=== PATIENT | female | born 1995 | race Caucasian/White ===

== ENCOUNTER 2017-11-15 10:06 | Observation (INO) | payer OTHER ==
[~2017-11-15] VITALS: Ht 172.7 cm; Wt 59.0 kg
[2017-11-15] MEDS ORDERED: NS IV 1000 ML 1,000 ML IV ONE (10:23)
--- NOTE | 2017-11-15 10:31 | ED Cardiac General ---
History of Present Illness General Chief Complaint: Cardiac/General Problems Stated Complaint: IRR HEART RATE Source: patient, RN/MD (Dr. Waddell [facility]), other (roommate) Exam Limitations: no limitations History of Present Illness Date Seen by Provider: Nov 15, 2017 Time Seen by Provider: 10:18 Initial Comments Patient presents to ER by EMS from [facility] with a chief complaint that she was not feeling well, palpitations and was found to be in supraventricular tachycardia suspect atrial fibrillation. She has a known history of hyperthyroidism and has scheduled surgical thyroidectomy at [facility] . She says she's had palpitations and felt like her heart was racing off and on for the past 5 years about once or twice a year but she usually will cough and will go away. 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 Dr. Wadedll said she tried carotid massage and other vagal maneuvers without success but then the patient spontaneously converted about the time EMS arrived. EMS reports the patient is in sinus tach. No medicines were given. No IV was started. Patient does not smoke. She is not on any other medications. She does have a Nexplanon in her left arm. Allergies and Home Medications Allergies Coded Allergies: No Known Drug Allergies (Unverified , 11/15/17) Review of Systems Constitutional: No chills, No diaphoresis EENTM: No Blurred Vision, No Double Vision Respiratory: Denies Cough, Denies Shortness of Air Cardiovascular: Denies Chest Pain, Denies Edema, Denies Lightheadedness, Palpitations, Denies Syncope Gastrointestinal: Denies Abdomen Distended, Denies Abdominal Pain, Denies Nausea Genitourinary: Denies Discharge, Denies Drainage Musculoskeletal: No back pain, No joint pain Skin: No pruritus, No rash Past Wkwhwje-Aptczt-Jbmmsk Hx Patient Social History Alcohol Use: Denies Use Recreational Drug Use: No Smoking Status: Never a Smoker Physical Exam Vital Signs Vital Signs - First Documented 11/15/17 10:06 Temp 98.0 Pulse 122 Resp 18 B/P (MAP) 134/89 (104) Pulse Ox 99 Capillary Refill : Less Than 3 Seconds General Appearance: No Apparent Distress, WD/WN HEENT: PERRL/EOMI, TMs Normal, Normal ENT Inspection, Pharynx Normal Neck: Full Range of Motion, Normal Inspection, Non Tender, Supple Respiratory: Chest Non Tender, Lungs Clear, Normal Breath Sounds, No Accessory Muscle Use, No Respiratory Distress Cardiovascular: Regular Rate, Rhythm, No Edema, Normal Peripheral Pulses, Tachycardia (110) Gastrointestinal: Normal Bowel Sounds, Non Tender, Soft Neurologic/Psychiatric: Alert, Oriented x3, No Motor/Sensory Deficits, Normal Mood/Affect Skin: Normal Color, Warm/Dry Progress/Results/Core Measures Results/Orders Lab Results Laboratory Tests Test 11/15/17 10:13 Range/Units White Blood Count 4.8 4.3-11.0 10^3/uL Red Blood Count 4.60 4.35-5.85 10^6/uL Hemoglobin 15.2 11.5-16.0 G/DL Hematocrit 43 35-52 % Mean Corpuscular Volume 93 80-99 FL Mean Corpuscular Hemoglobin 33 25-34 PG Mean Corpuscular Hemoglobin Concent 36 32-36 G/DL Red Cell Distribution Width 12.2 10.0-14.5 % Platelet Count 185 130-400 10^3/uL Mean Platelet Volume 10.7 H 7.4-10.4 FL Neutrophils (%) (Auto) 59 42-75 % Lymphocytes (%) (Auto) 31 12-44 % Monocytes (%) (Auto) 6 0-12 % Eosinophils (%) (Auto) 3 0-10 % Basophils (%) (Auto) 1 0-10 % Neutrophils # (Auto) 2.8 1.8-7.8 X 10^3 Lymphocytes # (Auto) 1.5 1.0-4.0 X 10^3 Monocytes # (Auto) 0.3 0.0-1.0 X 10^3 Eosinophils # (Auto) 0.1 0.0-0.3 10^3/uL Basophils # (Auto) 0.0 0.0-0.1 10^3/uL Sodium Level 143 135-145 MMOL/L Potassium Level 4.2 3.6-5.0 MMOL/L Chloride Level 108 H 98-107 MMOL/L Carbon Dioxide Level 23 21-32 MMOL/L Anion Gap 12 5-14 MMOL/L Blood Urea Nitrogen 9 7-18 MG/DL Creatinine 0.87 0.60-1.30 MG/DL Estimat Glomerular Filtration Rate > 60 BUN/Creatinine Ratio 10 Glucose Level 118 H 70-105 MG/DL Calcium Level 9.6 8.5-10.1 MG/DL Magnesium Level 2.3 1.8-2.4 MG/DL Total Bilirubin 1.3 H 0.1-1.0 MG/DL Aspartate Amino Transf (AST/SGOT) 20 5-34 U/L Alanine Aminotransferase (ALT/SGPT) 13 0-55 U/L Alkaline Phosphatase 73 40-136 U/L Troponin I < 0.30 <0.30 NG/ML Total Protein 7.2 6.4-8.2 GM/DL Albumin 4.5 3.2-4.5 GM/DL My Orders Orders - MAYLIN WALLACE Troponin I (11/15/17 10:23) Ekg Tracing (11/15/17 10:23) Saline Lock/Iv-Start (11/15/17 10:23) Monitor-Rhythm Ecg Trace Only (11/15/17 10:23) Cbc With Automated Diff (11/15/17 10:23) Comprehensive Metabolic Panel (11/15/17 10:23) Drug Screen Stat (Urine) (11/15/17 10:23) Magnesium (11/15/17 10:23) Ua Culture If Indicated (11/15/17 10:23) Chest Pa/Lat (2 View) (11/15/17 10:23) Ns Iv 1000 Ml (Sodium Chloride 0.9%) (11/15/17 10:23) Thyroid Stimulating Hormone (11/15/17 10:25) Thyroxine T4 (11/15/17 10:25) Medications Given in ED Current Medications Medications Dose Ordered Sig/Irasema Route Start Time Stop Time Status Last Admin Dose Admin Sodium Chloride 1,000 ml @ 0 mls/hr Q0M ONCE IV 11/15/17 10:23 11/15/17 10:26 DC 11/15/17 10:56 1,000 MLS/HR Vital Signs/I&O Vital Sign - Last 12Hours 11/15/17 10:06 Temp 98.0 Pulse 122 Resp 18 B/P (MAP) 134/89 (104) Pulse Ox 99 Progress Note : Time: 10:30 Progress Note Reviewed outside EKG showing heart rate 200 with supraventricular tachycardia. Presently she is in sinus tachycardia. We'll give her some fluids check some labs including thyroid and after discussing with the patient the plan to get consultation with cardiology and do an observation stay for further telemetry analysis and discuss with cardiology the necessity of using blood thinners. ECG Initial ECG Impression Date: Nov 15, 2017 Initial ECG Impression Time: 10:16 Initial ECG Rate: 110 Initial ECG Rhythm: S.Tach Initial ECG Intervals: QT (509) Initial ECG Impression: Nonspecific Changes (sinus tachycardia) Initial ECG Comparisson: No Previous ECG Available Comment No T-wave elevation or depression. Diagnostic Imaging Diagonstic Imaging: Xray Plain Films/CT/US/NM/MRI: chest (2v) Comments No cardiomegaly. No acute cardiopulmonary process noted. Reviewed: Reviewed by Me Departure Communication (Admissions) Time/Spoke to Admitting Phy: 11:[address] Waddell; discussed case lab imaging findings and EKG and our plan to hold onto her and consult with analytics senior manager. Time/Spoke to Consulting Phy: 11:06 Communication/Consulting Dr. Turner. Discussed case EKG lab imaging and findings and he agrees with aspirin daily but no anticoagulation and he will follow the patient. Impression Impression: Primary Impression: SVT (supraventricular tachycardia) Additional Impression: Hyperthyroidism Disposition: ADMITTED INPATIENT Condition: Stable Admissions Decision to Admit Reason: Admit from ER (General) Decision to Admit/Date: Nov 15, 2017 Time/Decision to Admit Time: 10:32 Copy Copies To 1: BINH WADDELL MD Copies To 2: Renate TURNER MD, TITUS J Nov 15, 2017 10:31
[2017-11-15 10:34] LABS: BASOPHILS % (AUTO) 1 % (0-10); EOSINOPHILS # (AUTO) 0.1 10^3/uL (0.0-0.3); EOSINOPHILS % (AUTO) 3 % (0-10); HEMATOCRIT 43 % (35-52); HEMOGLOBIN 15.2 G/DL (11.5-16.0); LYMPHOCYTES # (AUTO) 1.5 X 10^3 (1.0-4.0); LYMPHOCYTES % (AUTO) 31 % (12-44); MEAN CORPUSCULAR HEMOGLOBIN 33 PG (25-34); MEAN CORPUSCULAR HGB CONC 36 G/DL (32-36); MEAN CORPUSCULAR VOLUME 93 FL (80-99); MEAN PLATELET VOLUME 10.7 FL (7.4-10.4); MONOCYTES # (AUTO) 0.3 X 10^3 (0.0-1.0); MONOCYTES % (AUTO) 6 % (0-12); NEUTROPHILS # (AUTO) 2.8 X 10^3 (1.8-7.8); NEUTROPHILS % (AUTO) 59 % (42-75); PLATELET COUNT 185 10^3/uL (130-400); RED CELL DISTRIBUTION WIDTH 12.2 % (10.0-14.5); WHITE BLOOD COUNT 4.8 10^3/uL (4.3-11.0)
[2017-11-15 10:45] LABS: ALANINE AMINOTRANSFERASE 13 U/L (0-55); ALBUMIN 4.5 GM/DL (3.2-4.5); ALKALINE PHOSPHATASE 73 U/L (40-136); BILIRUBIN,TOTAL 1.3 MG/DL (0.1-1.0); BUN/CREATININE RATIO 10; CALCIUM 9.6 MG/DL (8.5-10.1); CARBON DIOXIDE 23 MMOL/L (21-32); CHLORIDE 108 MMOL/L (98-107); CREATININE SERUM 0.87 MG/DL (0.60-1.30); GFR ESTIMATED > 60; GLUCOSE 118 MG/DL (70-105); MAGNESIUM 2.3 MG/DL (1.8-2.4); POTASSIUM 4.2 MMOL/L (3.6-5.0); SODIUM 143 MMOL/L (135-145); TOTAL PROTEIN 7.2 GM/DL (6.4-8.2)
--- NOTE | 2017-11-15 11:25 | Diagnostic Imaging Report ---
INDICATION: Irregular heart rate. FINDINGS: PA and lateral chest show the lungs to be well-aerated and clear. Heart is not enlarged. There is no evidence of pulmonary edema. No hilar adenopathy. No pneumothorax or pleural effusion. No bony abnormalities. IMPRESSION: Normal PA and lateral chest. Dictated by: Dictated on workstation # [id number]
[2017-11-15 11:39] LABS: BILIRUBIN,URINE NEGATIVE (NEGATIVE); CLARITY,URINE CLEAR; COLOR,URINE YELLOW; GLUCOSE, URINE (UA) NEGATIVE (NEGATIVE); KETONES,URINE NEGATIVE (NEGATIVE); LEUKOCYTE ESTERASE ,URINE NEGATIVE (NEGATIVE); NITRITE,URINE NEGATIVE (NEGATIVE); PH,URINE 8 (5-9); PROTEIN,URINE NEGATIVE (NEGATIVE); UROBILINOGEN,URINE NORMAL (NORMAL)
[2017-11-15 11:48] LABS: AMPHETAMINE SCREEN, URINE NEGATIVE (NEGATIVE); BARBITURATE SCREEN URINE NEGATIVE (NEGATIVE); BENZODIAZEPINES SCREEN URINE NEGATIVE (NEGATIVE); CANNABINOID SCREEN, URINE NEGATIVE (NEGATIVE); COCAINE SCREEN URINE NEGATIVE (NEGATIVE); METHADONE STAT NEGATIVE (NEGATIVE); METHAMPHETAMINE SCREEN URINE S NEGATIVE (NEGATIVE); OPIATE SCREEN URINE NEGATIVE (NEGATIVE); OXYCODONE STAT NEGATIVE (NEGATIVE); PROPOXYPHENE STAT NEGATIVE (NEGATIVE); TRICYCLIC ANTIDEPRESSANTS SCRE NEGATIVE (NEGATIVE)
[2017-11-15 11:50] LABS: BACTERIA,URINE TRACE /HPF; WBC,URINE RARE /HPF
--- NOTE | 2017-11-15 12:10 | History & Physical-Hospitalist ---
HPI History of Present Illness: HPI/Chief Complaint This is a 22-year-old white female student at [employer] who presented to the [facility] with complaints of racing heart and palpitations. Her pulse was found to be in the 200s to 220 with an irregular rhythm. It was most consistent with a supraventricular give her tachycardia although atrial fibrillation was not ruled out. Valsalva maneuvers were attempted but unsuccessful. The patient was transferred by EMT to the emergency room for further evaluation and treatment. The patient had spontaneously converted to sinus rhythm at the [facility]. She does relate a history of having a thyroid cyst or nodule and has been diagnosed with hyperthyroidism. She has not had any medications and was scheduled for partial thyroidectomy over the spring. She does relate a history over the last several years of having episodes where her heart races or she gets palpitations but they go away when she coughs. She has no other history of medical problems. Source: patient Exam Limitations: no limitations Date Seen 11/15/17 Time Seen by Provider: 11:00 Attending Physician Mayelin Payne MD PCP Mayelin Payne MD Referring Physician Date of Admission Nov 15, 2017 at 11:15 Home Medications & Allergies Home Medications Reviewed patient Home Medication Reconciliation Form Allergies Allergies Coded Allergies No Known Drug Allergies (Unverified11/15/17) Past Jbcjgxk-Ndozlp-Idhoxe Hx Patient Social History Marrital Status: single Employed/Student: student, full-time Alcohol Use: Denies Use Recreational Drug Use: No Smoking Status: Never a Smoker Recent Foreign Travel: No Contact w/other who traveled: No Recent Infectious Disease Expo: No Surgeries Yes (DENTAL) Respiratory No Cardiovascular No Neurological No Genitourinary No Gastrointestinal No Musculoskeletal No Endocrine History of Endocrine Disorders: Yes Endocrine Disorders: Hyperthyroidism HEENT History of HEENT Disorders: No Cancer No Psychosocial History of Psychiatric Problem: No Family Medical History Significant Family History: Cancer (Breast in her mother), CVA (Stroke secondary to a dissecting carotid artery and her father) Review of Systems Constitutional: see HPI, weakness EENTM: no symptoms reported Respiratory: short of breath Cardiovascular: palpitations Gastrointestinal: no symptoms reported Genitourinary: no symptoms reported Musculoskeletal: no symptoms reported Skin: no symptoms reported Physical Exam Physical Exam Vital Signs Vital Signs - First Documented 11/15/17 10:06 Temp 98.0 Pulse 122 Resp 18 B/P (MAP) 134/89 (104) Pulse Ox 99 Capillary Refill : Less Than 3 Seconds General Appearance: Mild Distress, Thin HEENT: Normal ENT Inspection Neck: Other (Left thyroid is enlarged and palpable) Respiratory: Lungs Clear Cardiovascular: Irregularly Irregular Gastrointestinal: Non Tender Neurologic/Psychiatric: Alert, Oriented x3 Skin: Pallor Results Results/Procedures Lab Laboratory Tests 11/15/17 10:13 Assessment/Plan Admission Diagnosis 1. A. 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 Will obtain an echocardiogram and consider medication as this is evidently been going on for some time. 2. History of thyroid nodule with possible hyperthyroidism-labs pending MAYELIN PAYNE MD Nov 15, 2017 12:10
[2017-11-15] MEDS ORDERED: ACETAMINOPHEN 500 MG TAB (TYLENOL) PO PRN (12:45)
[2017-11-15] MEDS ORDERED: ONDANSETRON 4 MG/2 ML (SDV) Z0FRAN IV PRN (12:45)
--- NOTE | 2017-11-15 13:34 | Consultation-Cardiology ---
HPI-Cardiology Cardiology Consultation: Date of Consultation 11/15/17 Date of Admission Attending Physician Mayelin Waddell MD Admitting Physician Mayelin Waddell MD Consulting Physician Renate TURNER MD HPI: Time Seen by Provider: 13:00 Chief Complaint: Palpitations This is a 22-year-old lady who has history of a thyroid mass undergoing evaluation and possible surgery. She presented with palpitations this morning. The palpitations lasted for 10-15 minutes. There was associated chest discomfort. The patient did not have any near-syncope or syncope. This is her first episode. Review of Systems-Cardiology Review of Systems Constitutional: No As described under HPI, No no symptoms reported, No chills, No fever, No lightheadedness, No malaise, No tiredness, No weight loss, No weight gain, No other Eyes: No As described under HPI, No no symptoms reported, No blindness, No blurred vision, No contact lenses, No drainage, No decreased acuity, No foreign body sensation, No glasses, No inflammation, No pain, No photophobia, No previous injury, No shadows, No tunnel vision, No other, No vision change Ears/Nose/Throat: No As described under HPI, No no symptoms reported, No chronic hearing loss, No epistaxis, No ear discharge, No ear pain, No loose teeth, No mouth pain, No mouth swelling, No nasal drainage, No nose pain, No recent hearing loss, No throat pain, No throat swelling, No ulcerations, No other Respiratory: No no symptoms reported, No As described under HPI, No cough, No orthopnea, No shortness of breath, No SOB with excertion, No SOB at rest, No stridor, No wheezing, No other Cardiovascular: No no symptoms reported, No As described under HPI, No chest pain, No edema, No irregular heart rate, No lightheadedness, palpitations, No syncope, No other Gastrointestinal: No no symptoms reported, No As described under HPI, No abdomen distended, No abdominal pain, No blood streaked bowels, No constipation , No diarrhea, No difficulty swallowing, No nausea, No poor appetite, No poor fluid intake, No rectal bleeding, No vomiting, No other, No nausea/vomiting/ diarrhea, No stool coloration changes Genitourinary: No no symptoms reported, No As described under HPI, No burning, No dysuria, No discharge, No frequency, No flank pain, No hematuria, No incontinence, No pain, No urgency, No other, No urine frequency changes, No urine coloration changes Musculoskeletal: No no symptoms reported, No As describe under HPI, No back pain, No gout, No joint pain, No joint swelling, No muscle pain, No muscle stiffness, No neck pain, No other Skin: No no symptoms reported, No As described under HPI, No change in color, No change in hair/nails, No dryness, No lesions, No lumps, No rash, No other, No skin related problems, No ulcerations, No rash on exposed areas, No ulcerations on exposed areas Psychiatric/Neurological: No no symptoms reported, No As described under HPI, No anxiety, No depression, No emotional problems, No headache, No numbness, No pre-existing deficit, No seizure, No tingling, No tremors, No weakness, No other , No focal weakness, No syncope Hematologic: No no symptoms reported, No As described under HPI, No anemia, No blood clots, No easy bleeding, No easy bruising, No swollen glands, No other, No bleeding abnormalities YKW-Pbayih-Knedhk Hx Patient Social History Marrital Status: single Employed/Student: student, full-time Alcohol Use: Denies Use Recreational Drug Use: No Smoking Status: Never a Smoker Recent Foreign Travel: No Recent Infectious Disease Expo: No Hospitalization with Isolation: Denies Physical Abuse Screen: No Sexual Abuse: No Immunizations Up To Date Date of Influenza Vaccine: Oct 09, 2017 Past Medical History PMH As described under Assessment. Family Medical History Family History: FH: atrial fibrillation MATERNAL GRANSDMOTHER (ATRIAL FIBRILLATION) Allergies and Home Medications Allergies Coded Allergies: No Known Drug Allergies (Unverified , 11/15/17) Home Medications Metoprolol Succinate 25 Mg Tab.er.24h, 25 MG PO DAILY for 30 Days, #30 Ref 0 Prescribed by: VICENTE TORRES on 11/15/17 1478 Physical Exam-Cardiology Physical Exam Vital Signs/I&O Vital Sign - Last 12Hours 11/15/17 11/15/17 11/15/17 11/15/17 10:06 12:20 16:36 16:40 Temp 98.0 98.9 Pulse 122 101 76 76 Resp B/P (MAP) 134/89 (104) 131/75 (93) 131/75 Pulse Ox 99 98 100 100 O2 Delivery Room Air Room Air Room Air Capillary Refill : Less Than 3 Seconds Constitutional: No appears stated age, AAO x 3, No apparent distress, No PERRL , No well-developed, No well-nourished, No other HEENT: PERRL, No normal ENT inspection, No TMs normal, No pharynx normal, No scleral icterus (R), No scleral icterus (L), No pale conjunctivae (R), No pale conjunctivae (L), No photophobia, No TM abnormal (R), No TM abnormal (L), No pharyngeal erythema, No tonsillar exudate, No other, No discharge, No EOMI, hearing is well preserved, No hard of hearing, oral hygience is good, No ulceration, No xanthelasmas are seen Neck: No non-tender, No full range of motion, No supple, No normal inspection, No carotid bruit, No limited range of motion, No lymphadenopathy (R), No lymphadenopathy (L), No tender lateral, No tender midline, No thyromegaly, No other, carotid pulses are 2 + bilaterally, No with good upstrokes Respiratory: No accessory muscle use, No respiratory distress, No chest tender , No chest expansion is symmetric, chest is bilaterally symmetric, lungs clear to percussion, lungs clear to auscultation, No crackles, No rhonchi, No rales, No stridor, No wheezing, No pleural rub, No other Cardiovascular: regular rate-rhythm, No irregularly irregular, No extra beats, No parasternal heave is noted, No JVD, No edema, No bradycardia, No tachycardia , No point of maximal impulse, No cardiac thrills are palpable, S1 and S2, No gallop/S3, No gallop/S4, No diastolic murmur, No systolic murmur, No friction rub, No click, No other Gastrointestinal: No tender, No soft, No round, No distended, No pulsatile mass , No organomegaly, No guarding, No rebound, No tenderness, No hernia, No mass, No audible bowel sounds, No abnormal bowel sounds, No abdominal bruits, No spleenomegaly, No other Rectal: deferred Extremities: No normal range of motion, No non-tender, No normal inspection, No pedal edema, No calf tenderness, No normal capillary refill, No pelvis stable , No calf tenderness, No inflammation, No pedal edema, No slow capillary refill , No swelling, No other, No abrasion, No clubbing, No cyanosis, No ecchymosis, No laceration, No no lower extremity edema bilateral, No significant edema, No tenderness, No wound Neurologic/Psychiatric: No candle cutter II-XII nml as tested, No no motor/sensory deficits, No alert, No normal mood/affect, No oriented x 3, No abnormal cerebellar tests, No abnormal candle cutter II-XII, No abnormal gait, No aphasia, No EOM palsy, No facial droop, No motor weakness, No sensory deficit, No depressed affect, No disoriented x 3, No other, No grossly intact, No power is 5/5 both on sides Skin: No normal color, No warm/dry, No cyanosis, No cool, No diaphoresis, No damp, No ecchymosis, No jaundice, No mottled, No pallor, No rash, No tattoos/ piercings, No ulcerations, No rash on exposed areas, No ulcerations on exposed areas, No other Data Review Labs Laboratory Tests 11/15/17 10:13: White Blood Count 4.8, Red Blood Count 4.60, Hemoglobin 15.2, Hematocrit 43, Mean Corpuscular Volume 93, Mean Corpuscular Hemoglobin 33, Mean Corpuscular Hemoglobin Concent 36, Red Cell Distribution Width 12.2, Platelet Count 185, Mean Platelet Volume 10.7H, Neutrophils (%) (Auto) 59, Lymphocytes (%) (Auto) 31 , Monocytes (%) (Auto) 6, Eosinophils (%) (Auto) 3, Basophils (%) (Auto) 1, Neutrophils # (Auto) 2.8, Lymphocytes # (Auto) 1.5, Monocytes # (Auto) 0.3, Eosinophils # (Auto) 0.1, Basophils # (Auto) 0.0, Sodium Level 143, Potassium Level 4.2, Chloride Level 108H, Carbon Dioxide Level 23, Anion Gap 12, Blood Urea Nitrogen 9, Creatinine 0.87, Estimat Glomerular Filtration Rate > 60, BUN/ Creatinine Ratio 10, Glucose Level 118H, Calcium Level 9.6, Magnesium Level 2.3 , Total Bilirubin 1.3H, Aspartate Amino Transf (AST/SGOT) 20, Alanine Aminotransferase (ALT/SGPT) 13, Alkaline Phosphatase 73, Troponin I < 0.30, Total Protein 7.2, Albumin 4.5, Thyroid Stimulating Hormone (TSH) 0.90 11/15/17 11:27: Urine Color YELLOW, Urine Clarity CLEAR, Urine pH 8, Urine Specific [place] 1.015L, Urine Protein NEGATIVE, Urine Glucose (UA) NEGATIVE, Urine Ketones NEGATIVE, Urine Nitrite NEGATIVE, Urine Bilirubin NEGATIVE, Urine Urobilinogen NORMAL, Urine Leukocyte Esterase NEGATIVE, Urine RBC (Auto) NEGATIVE, Urine RBC NONE, Urine WBC RARE, Urine Squamous Epithelial Cells 5-10, Urine Crystals NONE , Urine Bacteria TRACE, Urine Casts NONE, Urine Mucus NEGATIVE, Urine Culture Indicated NO, Urine Test NEGATIVE, Urine Opiates Screen NEGATIVE, Urine Oxycodone Screen NEGATIVE, Urine Methadone Screen NEGATIVE, Urine Propoxyphene Screen NEGATIVE, Urine Barbiturates Screen NEGATIVE, Ur Tricyclic Antidepressants Screen NEGATIVE, Urine Phencyclidine Screen NEGATIVE, Urine Amphetamines Screen NEGATIVE, Urine Methamphetamines Screen NEGATIVE, Urine Benzodiazepines Screen NEGATIVE, Urine Cocaine Screen NEGATIVE, Urine Cannabinoids Screen NEGATIVE 11/15/17 14:02: D-Dimer < 0.27, Free Thyroxine 1.03 ECG Impression ECG Initial ECG Impression: SVT A/P-Cardiology Assessment/Admission Diagnosis PSVT, Hyperthyroidism Plan PSVT at 193 bpm. Spontaneous conversion to sinus rhythm. Likely AVNRT. I spoke at length to the patient and family. We will request an echocardiogram. I will start the patient on metoprolol. Vagal maneuvers were discussed. Ablation will be performed in the near future. Hyperthyroidism: TSH is normal. Thyroid surgery is planned next month. Thank you for your consultation. Please call me if you have any questions. Remberto Turner MD, FACP, FACC, FSCAI, FHRS, CCDS Interventional Cardiology Cardiac Electrophysiology Vascular Medicine and Endovascular Interventions Renate TURNER MD Nov 15, 2017 13:34
[2017-11-15] MEDS ORDERED: METO-387 PO (16:18)
[2017-11-15 16:36] VITALS: BP 131/75
[2017-11-15 16:40] VITALS: BP 131/75
[2017-11-16] MEDS ORDERED: ASPIRIN 325 MG (5 GR) TABLET PO SCH (09:00)
--- NOTE | 2017-11-17 15:21 | Physician Query-Final Dx ---
Final Diagnosis Give Final Diagnosis Please give Final Diagnosis MAYURI MAGDALENO Nov 17, 2017 15:21
== END 2017-11-15 16:20 | disposition home or self-care (01) ==
LOC: ER 10:10 → UNDOADMOB 11:15 → 4TH 11:15 → UNDODISOB 16:42
PROVIDERS: ADMIT Internal Medicine; ATTEND Internal Medicine
DX: I47.2 Ventricular tachycardia (principal); E05.10 Thyrotoxicosis with toxic single thyroid nodule without thyrotoxic crisis or storm
CPT/HCPCS: 36415; 71046; 80053; 80306; 81000; 83735; 84436; 84439; 84443; 84481; 84484; 84703; 85025; 85379; 93005; 93041; 93306; 96360; G0378